=== PATIENT | female | born 1955 | race Caucasian/White ===

== ENCOUNTER → 2016-09-12 | Outpatient (CLI) | payer OTHER ==
[~2016-09-12] MED LIST: LAMICTAL PO; NEURONTIN600 MG DOB; SEROQUEL50 M1 PO; WELLBUTRIN SR150 MG PO
--- NOTE | ~2016-09-12 | US24 ---
[facility] A Service of [facility] & [facility] RADIOLOGY TEXT RESULTS PATIENT: DAVID CRAFT LOCATION: [facility] : 55 UNIT #: [id number] AGE: [address]: ROBERTH CROLWEY APRN SEX: F ORDER DR: [id number] [place], [place] [address] [id number] O MR#: [id number] Acc #: [id number] NAME: DAVID CRAFT : 1955 SEX: F STUDY DATE/TIME: 09/12/2016 10:23 UNIT: [facility] ROOM: STUDY DESCRIPTION: US Breast Unilateral Attending Physician: Roberth Crowley Ordering Physician: Staff Doctor Not On Primary Care Physician: Roberth Crowley MEDICAL IMAGING REPORT This report is preliminary unless electronic signature is present EXAM Targeted ultrasound right breast 09/12/2016 FINDINGS Result text under the Bilateral diagnostic mammogram examination. Please see that examination for full report. BIRADS: 2 Benign findings Dictated by... Hilton Kinney M.D. THIS IS AN ELECTRONICALLY VERIFIED REPORT Hilton Kinney M.D. at 09/12/2016 5:19 PM Briana TD: 09/12/2016 13:40 JOB #: [id number] MEDICAL IMAGING REPORT COPY
--- NOTE | ~2016-09-12 | MY6 ---
[facility] A Service of [facility] & [facility] RADIOLOGY TEXT RESULTS PATIENT: DAVID CRAFT LOCATION: [facility] : 55 UNIT #: [id number] AGE: [address]: ROBERTH CROWLEY APRN SEX: F ORDER DR: [id number] [facility]. [place], [place] [address] [id number] O MR#: [id number] Acc #: [id number] NAME: DAVID CRAFT : 1955 SEX: F STUDY DATE/TIME: 09/12/2016 10:01 UNIT: [facility] ROOM: STUDY DESCRIPTION: MY Mammogram Dx Dig [place] Attending Physician: Roberth Crowley Ordering Physician: Renee Not Listed Primary Care Physician: Roberth Crowley MEDICAL IMAGING REPORT This report is preliminary unless electronic signature is present EXAM 1. Bilateral digital diagnostic mammogram with CAD. 2. Targeted right breast ultrasound. DATE 09/12/2016 HISTORY 61-year-old female with pain in the outer hemisphere, right breast, 09/12/2016. No personal or family history of breast cancer. No surgeries. TECHNIQUE CC, MLO, and true lateral views were obtained on the right. Standard screening views obtained on the left. COMPARISON STUDIES 09/14/2015, 09/22/2014, 09/07/2014. FINDINGS Breast parenchyma is composed of scattered fibroglandular densities. The pattern is unchanged. There is no new dominant nodule, mass or suspicious cluster of microcalcifications. Benign calcifications and benign-appearing nodularity bilaterally are stable dating back to 2014 and, therefore, benign, based on long-term stability. No axillary adenopathy. The patient complained of pain in the outer hemisphere, right breast (she initially complained of axillary pain in the questionnaire form, but the pain is actually laterally in the breast from about the 8 o'clock through the 10 o'clock positions). Ultrasound of this area was then performed. There is no mammographic correlate for the patient's complaint of pain symptoms. ULTRASOUND FINDINGS: The patient was initially scanned independently by the technologist and then rescanned in my presence. Limited physical exam STS. [facility] A Service of [facility] & [facility] RADIOLOGY TEXT RESULTS PATIENT: DAVID CRAFT [facility]: [id number] : 55 UNIT #: [id number] AGE: [address]: ROBERTH CROWLEY APRN SEX: F ORDER DR: (with patient consent) in the area of patient pain symptoms was negative, and the patient also denies a palpable abnormality. Ultrasound of the 8 o'clock through 10 o'clock positions in the area of patient pain symptoms demonstrates a solid oval-shaped nodule, measuring about 14 mm, without internal color flow or significant posterior acoustical shadowing, with only some mild marginal edge shadowing present. 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 Imaging of the remainder of the 8 o'clock through 10 o'clock positions is negative. Absent new or worsening symptoms in either breast, the patient should plan on returning for a screening mammogram in 1 year. Findings and recommendations were discussed with the patient. She voiced understanding and agreement. The patient was counselled to return for additional imaging prior to annual follow-up if symptoms worsened or new palpable abnormality developed, and she voiced understanding and agreement. IMPRESSION Mammographic evaluation and ultrasound evaluation of the area of patient pain symptoms in the right breast is negative. 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 Other nodularity in the right breast also stable mammographically, as well. Clinical consideration is to determine additional imaging at this point. There is no imaging correlate for the patient's complain of pain symptoms. Return to an annual screening mammography regimen is recommended, as described above. Patients over the age of 40 are entered into a reminder system with target due date for the next mammogram. A result letter will also be sent to the patient. BIRADS: 2 Benign finding. Dictated by... Hilton Kinney M.D. THIS IS AN ELECTRONICALLY VERIFIED REPORT Hilton Kinney M.D. at 09/12/2016 5:19 PM EDMUNDO/tim TD: 09/12/2016 13:46 JOB #: [id number] [facility]. [facility] A Service of [facility] & [facility] RADIOLOGY TEXT RESULTS PATIENT: DAVID CRAFT LOCATION: [facility] : 55 UNIT #: [id number] AGE: [address]: ROBERTH CROWLEY APRN SEX: F ORDER DR: MEDICAL IMAGING REPORT COPY
== END | disposition home or self-care (01) ==
LOC: CMAM 09:39
DX: N64.4 Mastodynia (principal); N63 Unspecified lump in breast
CPT/HCPCS: 76641; G0204